=== PATIENT | male | born 1965 | race American Indian/Alaskan Native ===

== ENCOUNTER 2019-11-30 10:27 | Emergency (ER) | payer MEDICARE ==
--- NOTE | 2019-11-30 12:32 | XRay Report ---
RIGHT ANKLE HISTORY: Right ankle pain. COMPARISON: None. TECHNIQUE: 4 views of the right ankle obtained. FINDINGS: Bones: Comminuted mildly displaced oblique fractures of the distal fibula. Fracture lines in at the a nkle joint. No callus. Joint spaces: Maintained. Soft tissues: Mild medial and lateral soft tissue swelling. No soft tissue air or foreign body. Additional findings: None. IMPRESSION: 1. Acute traumatic mildly displaced closed comminuted fracture of the distal right fibula. Signer Name: Balbir Mccormack MD Signed: 11/30/2019 12:28 PM Workstation Name: [id number]
[2019-11-30] MEDS ORDERED: oxyCODONE /ACETAMINOPHEN 5-325MG TAB PO ONE (14:27)
--- NOTE | 2019-11-30 14:35 | Emergency Department Report ---
ED Lower Extremity HPI - General Chief Complaint: Extremity Injury, Lower Stated Complaint: RT ANKLE INJURY/PAIN Time Seen by Provider: 11/30/19 14:14 Source: EMS Mode of arrival: Wheelchair Limitations: Other - History of Present Illness Initial Comments: 54-year-old -[place] male presents with complaints of right ankle injury and pain yesterday. Patient states he was playing around with his nieces and nephews and heard a sudden pop and had sudden pain in his right lateral ankle. He rates his pain as a 10/10 in severity and states it worsens with ambulation. He denies any numbness/tingling in his foot MD Complaint: ankle injury -: Sudden, days(s) - Related Data Previous Rx's Medication Instructions Recorded Last Taken Type Acetaminophen/Codeine [Tylenol 1 tab PO Q8H PRN #12 tab 11/30/19 Unknown Rx /Codeine # 3 tab] Ibuprofen [Motrin 800 MG tab] 800 mg PO Q8HR PRN #21 tablet 11/30/19 Unknown Rx Allergies Allergy/AdvReac Type Severity Reaction Status Date / Time No Known Allergies Allergy Unverified 11/30/19 10:46 ED Review of Systems ROS: Stated complaint: RT ANKLE INJURY/PAIN Other details as noted in HPI Musculoskeletal: joint swelling, arthralgia ED Past Medical Hx - Past Medical History Hx Heart Attack/AMI: Yes (X 6) - Surgical History Past Surgical History?: No - Medications Home Medications: Home Medications Medication Instructions Recorded Confirmed Last Taken Type Acetaminophen/Codeine [Tylenol 1 tab PO Q8H PRN #12 tab 11/30/19 Unknown Rx /Codeine # 3 tab] Ibuprofen [Motrin 800 MG tab] 800 mg PO Q8HR PRN #21 tablet 11/30/19 Unknown Rx ED Physical Exam - General Limitations: Other General appearance: alert, in no apparent distress - Head Head exam: Present: atraumatic, normocephalic - Eye Eye exam: Present: normal appearance - Respiratory Respiratory exam: Absent: respiratory distress - Cardiovascular Cardiovascular Exam: Present: regular rate - Expanded Lower Extremity Exam Right Ankle exam: Present: tenderness (Tenderness noted to lateral ankle and fibula. Mild swelling noted. Normal pedal pulses and sensation noted. Range of motion of ankle is limited secondary to pain. No erythema noted.). Absent: ecchymosis ED Course Vital Signs 11/30/19 10:47 Temperature 98.2 F Pulse Rate 72 Respiratory 18 Rate Blood Pressure 204/118 O2 Sat by Pulse 97 Oximetry - Orthopedic Splinting/Casting Injury #1 Side: right Lower Extremity Injury Location: lower leg, ankle Other Orthopedic Equipment: crutches Additional Comments: Salomon splint applied Normal perfusion and sensation noted of toes post application ED Lower Extremity MDM - Radiology Data Radiology results: report reviewed RIGHT ANKLE HISTORY: Right ankle pain. COMPARISON: None. TECHNIQUE: 4 views of the right ankle obtained. FINDINGS: Bones: Comminuted mildly displaced oblique fractures of the distal fibula. Fracture lines in at the ankle joint. No callus. Joint spaces: Maintained. Soft tissues: Mild medial and lateral soft tissue swelling. No soft tissue air or foreign body. Additional findings: None. IMPRESSION: 1. Acute traumatic mildly displaced closed comminuted fracture of the distal right fibula. - Medical Decision Making X-ray of right ankle shows acute traumatic mildly displaced closed comminuted fracture of the distal right fibula. Patient has normal sensation, pulses, and circulation of right foot on exam. Patient placed in a Salomon splint. Patient to follow-up with Dr. Poe within the next 3 days for further evaluation and treatment. His vitals are normal, he is nontoxic-appearing, and he is stable for discharge home. Discussed signs and symptoms that should prompt immediate return to the emergency department including signs and symptoms of compression syndrome. Patient informed to remain nonweightbearing and provided with crutches. Patient verbalizes understanding. Critical care attestation.: If time is entered above; I have spent that time in minutes in the direct care of this critically ill patient, excluding procedure time. ED Disposition Clinical Impression: Closed right fibular fracture Qualifiers: Encounter type: initial encounter Fibula location: distal Fracture morphology: other fracture Qualified Code(s): S82.831A - Other fracture of upper and lower end of right fibula, initial encounter for closed fracture Disposition: DC-01 TO HOME OR SELFCARE Is pt being admited?: No Condition: Stable Instructions: Ankle Fracture (ED), Splint Care (ED) Prescriptions: Ibuprofen [Motrin 800 MG tab] 800 mg PO Q8HR PRN #21 tablet PRN Reason: pain Acetaminophen/Codeine [Tylenol /Codeine # 3 tab] 1 tab PO Q8H PRN #12 tab PRN Reason: Pain , Severe (7-10) Referrals: ROBBIE POE MD [Staff Physician] - 2-3 Days
[2019-11-30] MEDS ORDERED: hydrALAZINE 25 MG TAB PO ONE (15:54)
[2019-11-30] MEDS ORDERED: hydrALAZINE 25 MG TAB ONE (16:08)
[2019-11-30 16:43] VITALS: BP 181/99
== END 2019-11-30 17:02 | disposition home or self-care (01) ==
LOC: ED 10:27
DX: S82.831A Other fracture of upper and lower end of right fibula, initial encounter for closed fracture (principal); I25.2 Old myocardial infarction; X58.XXXA Exposure to other specified factors, initial encounter; Y93.89 Activity, other specified; Y92.89 Other specified places as the place of occurrence of the external cause; Y99.8 Other external cause status

== ENCOUNTER 2020-12-09 13:36 | Emergency (ER) | payer MEDICARE ==
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
[2020-12-09 14:29] LABS: Basophils % (Auto) 0.4 % (0.0-1.8); Eosinophils # (Auto) 0.2 K/mm3 (0.0-0.4); Eosinophils % (Auto) 2.9 % (0.0-4.3); Lymphocytes # (Auto) 1.9 K/mm3 (1.2-5.4); Lymphocytes % (Auto) 33.2 % (13.4-35.0); Mean Corpuscular HGB Conc 36 % (32-34); Mean Corpuscular Volume 91 fl (84-94); Monocytes # (Auto) 0.4 K/mm3 (0.0-0.8); Monocytes % (Auto) 7.2 % (0.0-7.3); Platelet Count 255 K/mm3 (140-440); Red Blood Count 4.44 M/mm3 (3.65-5.03)
[2020-12-09 14:31] LABS: Hematocrit 40.3 % (35.5-45.6); Hemoglobin 14.6 gm/dl (11.8-15.2)
[2020-12-09 14:41] LABS: INR 1.1 (0.87-1.13)
[2020-12-09 14:42] LABS: Partial Thromboplastin Time 30.7 Sec. (24.2-36.6)
[2020-12-09 14:56] LABS: Alanine Aminotransferase 20 units/L (7-56); Albumin 4.2 g/dL (3.9-5); BUN/Creatinine Ratio 11; Blood Urea Nitrogen 11 mg/dL (9-20); Calcium 8.6 mg/dL (8.4-10.2); Hemolysis Index 3
--- NOTE | 2020-12-09 15:12 | XRay Report ---
XR chest 1V ap INDICATION / CLINICAL INFORMATION: Chest Pain. COMPARISON: None available. FINDINGS: SUPPORT DEVICES: None. HEART /PULMONARY VASCULATURE: No significant abnormality. LUNGS / PLEURA: No significant pulmonary or pleural abnormality. No pneumothorax. ADDITIONAL FINDINGS: No significant additional findings. IMPRESSION: 1. No acute findings. Signer Name: Ricardo Iqbal MD Signed: 12/09/2020 3:08 PM Workstation Name: [id number]
[2020-12-09 17:46] LABS: Bilirubin,Urine NEG (Negative); Blood,Urine NEG (Negative); Color,Urine Yellow (Yellow); Mucus,Urine FEW /HPF; Protein,Urine <15 mg/dL mg/dL (Negative)
[2020-12-09 17:54] LABS: Amphetamine Screen,Urine Negative; Benzodiazepines Screen,Urine Negative; Cocaine Screen,Urine Negative; Methadone Screen,Urine Negative; Opiate Screen,Urine Negative
[2020-12-09 18:08] LABS: Cannabinoid Screen,Urine Positive
[2020-12-09 18:18] VITALS: BP 179/97
== END 2020-12-09 18:18 | disposition home or self-care (01) ==
LOC: ED 13:36
DX: R07.89 Other chest pain (principal); I10 Essential (primary) hypertension; F17.200 Nicotine dependence, unspecified, uncomplicated; F12.10 Cannabis abuse, uncomplicated; Z79.1 Long term (current) use of non-steroidal anti-inflammatories (NSAID); Z79.899 Other long term (current) drug therapy
CPT/HCPCS: 36415; 71045; 80053; 80307; 81001; 83880; 84484; 85025; 85610; 85730; 93005

== ENCOUNTER 2022-06-15 16:41 | Emergency (ER) | payer MEDICARE ==
[2022-06-15] MEDS ORDERED: NITROGLYCERIN 0.4 MG TAB SUBL SL ONE (22:33)
[2022-06-15] MEDS ORDERED: ASPIRIN 81 MG TAB CHEW PO ONE (22:33)
--- NOTE | 2022-06-15 22:33 | XRay Report ---
CHEST 1 VIEW 06/15/2022 10:21 PM INDICATION / CLINICAL INFORMATION: left rib pain. COMPARISON: Chest radiograph dated 12/09/2020 FINDINGS: SUPPORT DEVICES: None. HEART / MEDIASTINUM: No significant abnormality. LUNGS / PLEURA: Streaky opacities in both lung bases, likely atelectasis. No pneumothorax. ADDITIONAL FINDINGS: No significant additional findings. RIBS: No acute, displaced fracture or other acute abnormality. IMPRESSION: 1. Streaky opacities in both lung bases, likely atelectasis. No acute displaced rib fracture. Signer Name: Everardo Marx MD Signed: 06/15/2022 10:29 PM Workstation Name: [id number]
[2022-06-15] MEDS ORDERED: MORPHINE 4 MG/1 ML INJ IV ONE (22:34)
[2022-06-15] MEDS ORDERED: ONDANSETRON 4 MG/2 ML INJ IV ONE (22:34)
--- NOTE | 2022-06-15 22:39 | Emergency Department Report ---
ED Chest Pain HPI - General Chief Complaint: Chest Pain Stated Complaint: RIB CAGE PAIN PUI?: No Time Seen by Provider: 06/15/22 22:25 - History of Present Illness Initial Comments: 57-year-old male with a history of hypertension noncompliant with his antihypertensive medication who presented with left chest discomfort that started about 24 hours ago progressively getting worse. Patient reports worsen ing pain with deep breath. Patient is very poor historian. It was time to explain that he has had 6 previous heart attacks but not sure whether he had stent placed or not. No other modifying or associated factors. MD Complaint: chest pain - Related Data Previous Rx's Medication Instructions Recorded Last Taken Type Acetaminophen/Codeine [Tylenol 1 tab PO Q8H PRN #12 tab 11/30/19 Unknown Rx /Codeine # 3 tab] Ibuprofen [Motrin 800 MG tab] 800 mg PO Q8HR PRN #21 tablet 04/03/20 Unknown Rx hydroCHLOROthiazide [Hctz] 12.5 mg PO QDAY #30 capsule 12/09/20 Unknown Rx amLODIPine 10 mg PO DAILY #30 tab 06/16/22 Unknown Rx hydroCHLOROthiazide [HCTZ] 25 mg PO QDAY 30 Days #30 tablet 06/16/22 Unknown Rx Allergies Allergy/AdvReac Type Severity Reaction Status Date / Time No Known Allergies Allergy Unverified 11/30/19 10:46 Heart Score - HEART Score History: Slightly suspicious EKG: Normal Age: 45-65 Risk factors: 1-2 risk factors Troponin: < normal limit HEART Score: 2 - EKG Read Time Time EKG Completed: 20:17 EKG Read Time: 20:23 - Critical Actions Critical Actions: 0-3 pts:0.9-1.7%risk of adverse cardiac event.Candidate for discharge ED Review of Systems ROS: Stated complaint: RIB CAGE PAIN Other details as noted in HPI Comment: All other systems reviewed and negative Cardiovascular: chest pain Gastrointestinal: nausea. denies: abdominal pain, vomiting ED Past Medical Hx - Past Medical History Hx Heart Attack/AMI: Yes (X 6) - Social History Smoking Status: Current Every Day Smoker Substance Use Type: Marijuana - Medications Home Medications: Home Medications Medication Instructions Recorded Confirmed Last Taken Type Acetaminophen/Codeine [Tylenol 1 tab PO Q8H PRN #12 tab 11/30/19 Unknown Rx /Codeine # 3 tab] Ibuprofen [Motrin 800 MG tab] 800 mg PO Q8HR PRN #21 tablet 04/03/20 Unknown Rx hydroCHLOROthiazide [Hctz] 12.5 mg PO QDAY #30 capsule 12/09/20 Unknown Rx amLODIPine 10 mg PO DAILY #30 tab 06/16/22 Unknown Rx hydroCHLOROthiazide [HCTZ] 25 mg PO QDAY 30 Days #30 tablet 06/16/22 Unknown Rx ED Physical Exam - General Limitations: No Limitations General appearance: alert, in no apparent distress - Head Head exam: Present: normal inspection - Eye Eye exam: Present: normal appearance Pupils: Present: normal accommodation - ENT ENT exam: Present: normal exam, normal orophraynx, mucous membranes dry - Neck Neck exam: Present: normal inspection, full ROM. Absent: tenderness - Respiratory Respiratory exam: Present: normal lung sounds bilaterally, chest wall tenderness. Absent: respiratory distress, accessory muscle use - Cardiovascular Cardiovascular Exam: Present: regular rate, normal rhythm, normal heart sounds - GI/Abdominal GI/Abdominal exam: Present: soft, normal bowel sounds. Absent: distended, tenderness - Extremities Exam Extremities exam: Present: normal inspection, normal capillary refill. Absent: tenderness, pedal edema - Back Exam Back exam: Absent: tenderness, CVA tenderness (R), CVA tenderness (L) - Neurological Exam Neurological exam: Present: alert, oriented X3 - Psychiatric Psychiatric exam: Present: normal affect, normal mood - Skin Skin exam: Present: warm, normal color ED Course Vital Signs 06/15/22 06/15/22 06/15/22 20:27 20:30 20:34 Pulse Rate 66 76 73 Respiratory 12 15 12 Rate Blood Pressure 229/118 Blood Pressure 220/124 [Left] O2 Sat by Pulse 93 100 Oximetry 06/15/22 06/15/22 06/15/22 21:01 21:31 22:00 Pulse Rate 66 59 L 77 Respiratory 17 15 12 Rate Blood Pressure 212/125 215/112 205/116 Blood Pressure [Left] O2 Sat by Pulse 96 97 99 Oximetry 06/15/22 06/15/22 06/15/22 22:33 22:52 22:53 Pulse Rate 75 76 76 Respiratory Rate Blood Pressure 205/116 204/116 204/116 Blood Pressure [Left] O2 Sat by Pulse Oximetry 06/15/22 06/15/22 06/15/22 23:01 23:31 23:41 Pulse Rate 79 87 94 H Respiratory 27 H 22 28 H Rate Blood Pressure 204/116 165/86 165/86 Blood Pressure [Left] O2 Sat by Pulse 96 94 96 Oximetry 06/16/22 06/16/22 06/16/22 00:01 00:31 01:01 Pulse Rate 83 79 72 Respiratory 24 16 18 Rate Blood Pressure 173/82 137/75 143/82 Blood Pressure [Left] O2 Sat by Pulse 95 95 97 Oximetry 06/16/22 06/16/22 06/16/22 01:31 02:01 02:31 Pulse Rate 76 72 70 Respiratory 19 15 11 L Rate Blood Pressure 146/80 133/82 146/80 Blood Pressure [Left] O2 Sat by Pulse 96 96 95 Oximetry 06/16/22 06/16/22 06/16/22 03:00 03:30 04:26 Pulse Rate 72 65 65 Respiratory 10 L 12 12 Rate Blood Pressure 135/82 Blood Pressure 135/82 [Left] O2 Sat by Pulse 96 96 96 Oximetry JAVIER score - Javier Score Age > 65: (0) No Aspirin use within the Past 7 Days: (0) No 3 or more CAD Risk Factors: (0) No 2 or more Angina events in past 24 hrs: (0) No Known CAD with more than 50% Stenosis: (0) No Elevated Cardiac Markers: (0) No ST Deviation Greater than 0.5mm: (0) No JAVIER Score: 0 ED Medical Decision Making - Lab Data Result diagrams: 06/15/22 22:33 06/15/22 22:33 - EKG Data -: EKG Interpreted by Co EKG shows normal: sinus rhythm Rate: normal - EKG Data 06/15/22 22:41 Initial EKG shows normal sinus rhythm at a rate of 77bpm left bundle branch block with left atrial enlargement and no significant ST elevation in this abnormal ECG--there is no old EKG to compare with that is a new left bundle branch block on - Medical Decision Making Here with chest pain/pressure--differential could be but not limited to myocardial infarction, pulmonary embolism, costochondritis, anxiety, gastritis, GERD, pancreatitis, and or pyelonephritis--in order to rule out the above-- so will go ahead and order routine cardiopulmonary work-up that include troponin, EKG, chest x-ray, BNP, CKMB, and CBC, CMP and urinalysis for any correctable infectious process or electrolyte abnormality as a cause. Initial EKG she does not show any ST elevation but left bundle branch block unsure if it is new--we will continue to monitor this patient troponin as this symptoms is likely related to hypertension Lab review to be unremarkable--and blood pressure improved to 135/82 after giving hydralazine--patient reassured and DC home on lisinopril and hydrochlorothiazide with close follow-up with his primary doctor for further evaluation and treatment Critical care attestation.: If time is entered above; I have spent that time in minutes in the direct care of this critically ill patient, excluding procedure time. ED Disposition Clinical Impression: Hypertensive urgency Chest pain Qualifiers: Chest pain type: unspecified Qualified Code(s): R07.9 - Chest pain, unspecified Disposition: HOME / SELF CARE / HOMELESS Is pt being admited?: No Does the pt Need Aspirin: No Condition: Stable Instructions: Nonspecific Chest Pain, Adult, [id number], Preventing Hypertension, Hypertension, Adult Additional Instructions: It is very important that you you start taking your renewed medication amlodipine and hydrochlorothiazide to continue to help your symptoms and prevent complication that comes with hypertension Call and schedule follow-up with your primary doctor in the next 3 to 5 days for progress Call or return to emergency room if your symptoms worsen Prescriptions: amLODIPine 10 mg PO DAILY #30 tab hydroCHLOROthiazide [HCTZ] 25 mg PO QDAY 30 Days #30 tablet Referrals: CARLOS ALBERTO COSME MD [Primary Care Provider] - 3-5 Days Time of Disposition: 03:52
[2022-06-15] MEDS ORDERED: hydrALAZINE 20 MG/1 ML INJ IV ONE (22:44)
[2022-06-15 23:06] LABS: Basophils # (Auto) 0.1 K/mm3 (0.0-0.1); Basophils % (Auto) 1.2 % (0.0-1.8); Eosinophils # (Auto) 0.2 K/mm3 (0.0-0.4); Eosinophils % (Auto) 2.4 % (0.0-4.3); Hematocrit 45.3 % (35.5-45.6); Hemoglobin 15.2 gm/dl (11.8-15.2); Lymphocytes # (Auto) 3.6 K/mm3 (1.2-5.4); Mean Corpuscular HGB Conc 34 % (32-34); Mean Corpuscular Volume 91 fl (84-94); Monocytes # (Auto) 0.5 K/mm3 (0.0-0.8); Monocytes % (Auto) 5.1 % (0.0-7.3); Platelet Count 277 K/mm3 (140-440); Red Blood Count 4.99 M/mm3 (3.65-5.03); Red Cell Distribution Width 14.2 % (13.2-15.2)
[2022-06-15 23:18] LABS: INR 0.91 (0.87-1.13)
[2022-06-15 23:19] LABS: Partial Thromboplastin Time 29.3 Sec. (24.2-36.6)
[2022-06-15 23:28] LABS: Alanine Aminotransferase 15 units/L (7-56); Albumin 4.8 g/dL (3.9-5); BUN/Creatinine Ratio 15; Blood Urea Nitrogen 15 mg/dL (9-20); Calcium 9.7 mg/dL (8.4-10.2); Hemolysis Index 8
[2022-06-16 03:43] VITALS: BP 135/82
--- NOTE | 2022-06-16 09:34 | Electrocardiograph Report ---
[facility] Test Date: 2022-06-15 Test Time: 20:17:22 Pat Name: PEÑA FRIEDMAN JR Department: Room: Gender: M Jelly Maker: PAULETTE : 1965 Requested By: MINNA PEREZ Order Number: [id number] Reading MD: Sage Potter Measurements Intervals [place] Rate: 77 P: 66 ME: 133 QRS: 62 QRSD: 148 T: 247 QT: 427 QTc: 483 Interpretive Statements Sinus rhythm Probable left atrial enlargement Left bundle branch block No previous ECG available for comparison Electronically Signed On 06-16-2022 9:34:09 EDT by Sage Potter
== END 2022-06-16 04:27 | disposition home or self-care (01) ==
LOC: ED 16:41
DX: I16.0 Hypertensive urgency (principal); R07.89 Other chest pain; F17.200 Nicotine dependence, unspecified, uncomplicated; F12.90 Cannabis use, unspecified, uncomplicated; Z79.899 Other long term (current) drug therapy
CPT/HCPCS: 36415; 71045; 71100; 80053; 83880; 84484; 85025; 85379; 85610; 85730; 93005; 96374; 96375; 99284; J0360; J2270; J2405